=== PATIENT | female | born 1950 | race Caucasian/White ===

== ENCOUNTER → 2018-02-04 | Outpatient (CLI) | payer OTHER | END | disposition home or self-care (01) | LOC: OIH 13:10 | PROVIDERS: ATTEND Internal Medicine Cardiovascular Disease | DX: Z13.6 Encounter for screening for cardiovascular disorders (principal) | CPT/HCPCS: 75571 ==

== ENCOUNTER → 2022-10-25 | Outpatient (CLI) | payer MEDICARE | END | disposition home or self-care (01) | LOC: RAH 12:42 | PROVIDERS: ATTEND Family Medicine | DX: M47.817 Spondylosis without myelopathy or radiculopathy, lumbosacral region (principal); M48.07 Spinal stenosis, lumbosacral region; M25.452 Effusion, left hip | CPT/HCPCS: 72148; 73721 ==

== ENCOUNTER 2023-10-08 06:30 | Day surgery (SDC) | payer MEDICARE ==
[2023-10-02 14:40] VITALS: BP 154/94; PULSE 66; RESP 18
[2023-10-08] VITALS (18 sets, daily range): BP systolic 138–165; BP diastolic 67–101; PULSE 76–85; RESP 12–18
[~2023-10-08] VITALS: Ht 160 cm; Wt 90.4 kg
[~2023-10-08 06:30] MED LIST: FLUT16H NASAL; METO25TA6 PO; NAPR-1196 PO; OMEP40CA21 PO
[2023-10-08] MEDS ORDERED: GLYCOPYRROLATE 0.2 MG/ML 5 ML VIAL ONE (09:53)
[2023-10-08] MEDS ORDERED: MIDAZOLAM HCL 1 MG/ML 2ML VIAL ONE (09:53)
[2023-10-08] MEDS ORDERED: SUCCINYLCHOLINE CHLORIDE 20 MG/ML 10 ML VIAL ONE (09:53)
[2023-10-08] MEDS ORDERED: LIDOCAINE PF 100MG/5ML (2%) SYRINGE 5ML ONE (09:53)
[2023-10-08] MEDS ORDERED: ROCURONIUM BROMIDE 10MG/1ML 5ML VL ONE (09:54)
[2023-10-08] MEDS ORDERED: ONDANSETRON 4MG INJ ONE (09:54)
[2023-10-08] MEDS ORDERED: NEOSTIGMINE METHYLSULFATE 1MG/ML IV ONE (09:54)
[2023-10-08] MEDS ORDERED: FENTANYL CITRATE PF 50 MCG/1 ML 2ML VIAL ONE (09:54)
[2023-10-08] MEDS ORDERED: PROPOFOL 10 MG/ML 20ML VIAL IV ONE (09:54)
[2023-10-08] MEDS ORDERED: ROPIVACAINE 0.5% 5MG/ML 30ML ONE (09:57)
[2023-10-08] MEDS: CEFAZOLIN SODIUM 2 GM VIAL ONE (10:30)
[2023-10-08] MEDS ORDERED: HYDROCODONE/ACETAMINOPHEN 5/325 MG TAB PO PRN (10:30)
[2023-10-08] MEDS ORDERED: SOLU-MEDROL 125MG VIAL ONE (10:41)
[2023-10-08] MEDS ORDERED: EPINEPHRINE PF 1MG (1:1,000) 1 MG/ML AMP ONE (10:41)
[2023-10-08] MEDS ORDERED: PHENYLEPHRINE HCL 10 MG/ML 1ML VIAL IV ONE (10:42)
[2023-10-08] MEDS: CEFAZOLIN SODIUM 1 GM VIAL ONE (10:45)
[2023-10-08] MEDS: LACTATED RINGERS 1000ML 1,000 ML IV ONE (11:19)
[2023-10-08] MEDS: MEPERIDINE-PF 25 MG/ML SYG ONE (12:11)
[2023-10-08] MEDS ORDERED: CALDOLOR 800MG+NS 250ML 250 ML IV SCH (14:00)
== END 2023-10-08 13:50 | disposition home or self-care (01) ==
LOC: DAH 06:30
PROVIDERS: ATTEND Orthopaedic Surgery
DX: S46.011A Strain of muscle(s) and tendon(s) of the rotator cuff of right shoulder, initial encounter (principal); M17.0 Bilateral primary osteoarthritis of knee; I10 Essential (primary) hypertension; E66.01 Morbid (severe) obesity due to excess calories; F17.200 Nicotine dependence, unspecified, uncomplicated; Z90.710 Acquired absence of both cervix and uterus; Z98.890 Other specified postprocedural states; Z68.35 Body mass index [BMI] 35.0-35.9, adult; W19.XXXA Unspecified fall, initial encounter; Y93.89 Activity, other specified; Y92.89 Other specified places as the place of occurrence of the external cause; Y99.8 Other external cause status
CPT/HCPCS: 23412; 64415; A6260; A4663; J7120 ×2; A4565; J3010; J0690 ×2; J0330; J2930; J3490 ×2; J2001; J0171; J2250; J2704; J2405; J2710; J2175; J2795; J2371; A4930; C1713; C1776; A5120; A4215; A4223; A4222; A4221; A4600; G0168